=== PATIENT | female | born 1980 | race Caucasian/White ===

== ENCOUNTER 2018-09-28 08:01 | Emergency (ER) | payer OTHER ==
[~2018-09-28] VITALS: Ht 165.1 cm; Wt 93.0 kg
[2018-09-28 08:05] VITALS: BP 143/93
--- NOTE | 2018-09-28 08:07 | NUR ---
Patient ambulated to bed 7 at this time.
--- NOTE | 2018-09-28 08:15 | NUR ---
C38/f BIB SELF C/O COUGH X 1 WEEK.PHLEGM X TODAY. MED HX: BRONCHITIS. DENIES N/V/D; SKIN IS PINK/WARM/DRY; AAOX4 WITH EVEN AND STEADY GAIT; LUNGS CLEAR BL; HR EVEN AND REGULAR; PT DENIES ANY FEVER, CP OR SOB AT THIS TIME; PATIENT STATES PAIN OF 0/10 AT THIS TIME. PATIENT POSITIONED FOR COMFORT; HOB ELEVATED; BEDRAILS UP X2; BED DOWN. ER MD MADE AWARE OF PT STATUS.
[2018-09-28 08:30] VITALS: BP 143/93
--- NOTE | 2018-09-28 08:30 | NUR ---
Patient discharged with v/s stable. Written and verbal after care instructions given and explained. Patient alert, oriented and verbalized understanding of instructions. Ambulatory with steady gait. All questions addressed prior to discharge. ID band removed. Patient advised to follow up with PMD. Rx of CLARITINE, TESSALON given. Patient educated on indication of medication including possible reaction and side effects. Opportunity to ask questions provided and answered.
== END 2018-09-28 08:30 | disposition home or self-care (01) ==
LOC: MED 08:01
DX: J40 Bronchitis, not specified as acute or chronic (principal); R03.0 Elevated blood-pressure reading, without diagnosis of hypertension; E03.9 Hypothyroidism, unspecified; Z88.5 Allergy status to narcotic agent
CPT/HCPCS: 99283

== ENCOUNTER 2021-02-05 10:21 | Emergency (ER) | payer OTHER ==
[~2021-02-05] VITALS: Ht 165.1 cm; Wt 90.7 kg
[2021-02-05 10:27] VITALS: BP 92/36
--- NOTE | 2021-02-05 10:29 | NUR ---
PT TAKEN TO LOBBY.
--- NOTE | 2021-02-05 10:36 | NUR ---
PT TAKEN TO XR VIA W/C.
--- NOTE | 2021-02-05 10:41 | NUR ---
PT TAKEN TO LOBBY VIA W/C.
--- NOTE | 2021-02-05 11:03 | NUR ---
PATIENT PRESENTS WITH LEFT ANKLE PAIN S/P TWISTING ANKLE TWO DAYS AGO. NO OBVIOUS DEFORMITY NOTED. PATIENT ABLE TO AMBULATE AT THIS TIME WITH STEADY GAIT. PULSES PALPABLE +4. CMS IN TACT TO LEFT LOWER EXTREMITY.
--- NOTE | 2021-02-05 11:10 | NUR ---
Dr. Mena is evaluating the patient at bedside.
--- NOTE | 2021-02-05 11:19 | NUR ---
procedures tech at pt bedside.
[2021-02-05] MEDS ORDERED: IBUP-2213 PO (11:44)
[2021-02-05] MEDS ORDERED: IBUPROFEN 600 MG TAB PO ONE (11:45)
--- NOTE | 2021-02-05 11:45 | NUR ---
APPLIED ACRE WRAP TO LEFT ANKLE AND PT DEMONSTRATED PROPER USE OF CRUTCHES
[2021-02-05 11:50] VITALS: BP 92/36
--- NOTE | 2021-02-05 11:51 | NUR ---
Patient discharged with v/s stable. Written and verbal after care instructions given and explained. Patient alert, oriented and verbalized understanding of instructions. Ambulatory with steady gait. All questions addressed prior to discharge. ID band removed. Patient advised to follow up with PMD. Rx of IBURPROFE 600MG Q6H PRN PAIN given. Patient educated on indication of medication including possible reaction and side effects. Opportunity to ask questions provided and answered.
== END 2021-02-05 11:53 | disposition home or self-care (01) ==
LOC: MED 10:21
DX: S93.402A Sprain of unspecified ligament of left ankle, initial encounter (principal); E03.9 Hypothyroidism, unspecified; Z98.890 Other specified postprocedural states; W50.2XXA Accidental twist by another person, initial encounter; Y93.89 Activity, other specified; Y92.89 Other specified places as the place of occurrence of the external cause; Y99.8 Other external cause status
CPT/HCPCS: 73610; 73630; 99284

== ENCOUNTER 2021-07-13 16:18 | Emergency (ER) | payer OTHER ==
[~2021-07-13] VITALS: Ht 165.1 cm; Wt 89.4 kg
[~2021-07-13 16:18] MED LIST: IBUP-2213 PO
[2021-07-13 16:48] VITALS: BP 130/82
--- NOTE | 2021-07-13 17:00 | NUR ---
41 Y/O F BIB SELF FROM HOME, C/O T/C 6 DAYS AGO. C/O CHERY AND INCREASED NECK PAIN THAT PROGRESSIVELY WORSENED. PT ALSO STATES SHOULDER PAIN X 1 DAY; 8/10, SHARP/INTERMITTENT, NON-RADIATING PAIN. PATIENT STATES HEADACHE AND CERVICAL NECK PAIN REMAINS UNCHANGED. ALSO REPORTS R SHOULDER AND RUE PAIN WITH +NUMBNESS FROM DELTOID AREA DOWN TO ELBOWS AND SOMETIMES GETS "PINS AND NEEDLES" FEELING TO RIGHT ARM. +CMS +ROM. CT SCAN WAS DONE OF HEAD AND NECK AT [facility] NEGATIVE, WAS TOLD IT WAS "WHIPLASH." STATES IBUPROFEN 600MG @ 0530 TODAY WITH TEMPORARY RELIEF. BED LOCKED IN LOWEST POSITION, SIDE RAILS X1 , CALL LIGHT IN REACH. PMH: HYPOTHRYOID MED: LEVOTHYROXINE ALLERGY: MORPHINE (HIVES)
[2021-07-13] MEDS ORDERED: KETOROLAC 30 MG/ML VIAL IM ONE (17:05)
[2021-07-13] MEDS ORDERED: BACL10TA4 PO (17:11)
--- NOTE | 2021-07-13 17:51 | NUR ---
Patient discharged with v/s stable. Written and verbal after care instructions ABOUT CERVICAL STRAIN AND SPRAIN REHAB given and explained. Patient alert, oriented and verbalized understanding of instructions. Ambulatory with steady gait. All questions addressed prior to discharge. ID band removed. Patient advised to follow up with PMD. Rx of BACLOFEN given. Patient educated on indication of medication including possible reaction and side effects. Opportunity to ask questions provided and answered.
== END 2021-07-13 17:51 | disposition home or self-care (01) ==
LOC: MED 16:18
DX: S16.1XXA Strain of muscle, fascia and tendon at neck level, initial encounter (principal); M54.12 Radiculopathy, cervical region; E03.9 Hypothyroidism, unspecified; Z88.5 Allergy status to narcotic agent; Z79.899 Other long term (current) drug therapy; V89.2XXA Person injured in unspecified motor-vehicle accident, traffic, initial encounter; Y93.89 Activity, other specified; Y92.89 Other specified places as the place of occurrence of the external cause; Y99.8 Other external cause status
CPT/HCPCS: 96372; 99283; J1885

== ENCOUNTER 2022-04-25 18:45 | Emergency (ER) | payer OTHER ==
[~2022-04-25] VITALS: Ht 162.6 cm; Wt 86.2 kg
[~2022-04-25 18:45] MED LIST changes: +BACL10TA4 PO
[2022-04-25 19:05] VITALS: BP 150/98
--- NOTE | 2022-04-25 19:08 | NUR ---
TO LOBBY A/W BED AMBULATORY
[2022-04-25 21:05] VITALS: BP 131/78
--- NOTE | 2022-04-25 21:06 | NUR ---
SEEN AND EXAMINED BY NICOLE
[2022-04-25] MEDS ORDERED: NAPR-54 PO (21:11)
[2022-04-25] MEDS ORDERED: METH4TAB1 PO (21:11)
--- NOTE | 2022-04-25 21:15 | NUR ---
Patient discharged with v/s stable. Written and verbal after care instructions given and explained. Patient alert, oriented and verbalized understanding of instructions. Ambulatory with steady gait. All questions addressed prior to discharge. ID band removed. Patient advised to follow up with PMD. Rx of MEDROL AND NAPROSYN given. Patient educated on indication of medication including possible reaction and side effects. Opportunity to ask questions provided and answered.
== END 2022-04-25 21:15 | disposition home or self-care (01) ==
LOC: MED 18:45
DX: M54.12 Radiculopathy, cervical region (principal); E03.9 Hypothyroidism, unspecified; Z79.891 Long term (current) use of opiate analgesic
CPT/HCPCS: 99283